=== PATIENT | female | born 1950 | race Caucasian/White ===

== ENCOUNTER → 2016-12-18 | Outpatient (CLI) | payer OTHER ==
[~2016-12-18] VITALS: Ht 165.1 cm; Wt 51.8 kg
[~2016-12-18] MED LIST: AMIO200T2 PO; AMLO2.5T PO; ASPI-557 PO; BUPR300T59 PO; CALC-603 PO; DULO60CA25 PO; FAMO-137 PO; MAGN500C4 PO; METO25TA6 PO; ONDA4TAB4 PO; QUET50TA53 PO; ROSU20TA PO; SULF1TAB42 PO; ZOLP5TAB8 PO
== END ==
LOC: RC 08:59
PROVIDERS: ATTEND Internal Medicine Cardiovascular Disease
DX: I48.92 Unspecified atrial flutter (principal)
CPT/HCPCS: 94010; 94726

== ENCOUNTER → 2017-01-08 | Outpatient (CLI) | payer OTHER ==
[~2017-01-08] MED LIST changes: -CALC-603 PO; -MAGN500C4 PO
--- NOTE | 2017-01-08 12:11 | DI ---
INDICATION: ITS.REASON: R06.02 SOB PROCEDURE: CHEST 2-VIEWS UPRIGHT (PA \T\ LAT) Encounter: Initial COMPARISON: One view chest, 11/12/2016 FINDINGS: The lungs are clear without evidence of focal abnormal airspace opacity. There is moderate hyperaeration consistent with chronic obstructive pulmonary disease. There are small bilateral pleural effusions. Once again noted is median sternotomy. The heart size, mediastinal contours and pulmonary vascularity are within normal limits. There is no significant skeletal abnormality. IMPRESSION: 1. Chronic pulmonary disease. 2. Emergence of bilateral pleural effusions since the reference study. .
[2017-01-08 12:20] LABS: ALBUMIN 3.9 G/DL (3.5-5.0); ALBUMIN/GLOBULIN RATIO 1.1 RATIO (1.1-2.2); ALKALINE PHOSPHATASE 135 U/L (38-126); ALT (SGPT) 32 U/L (9-52); AST (SGOT) 38 U/L (14-36); TOTAL PROTEIN 7.5 G/DL (6.3-8.2)
[2017-01-08 12:59] LABS: THYROID STIM HORMONE-TSH 3.67 MIU/L (0.47-4.68)
== END ==
LOC: IMA 10:03
PROVIDERS: ATTEND Internal Medicine Cardiovascular Disease
DX: J44.9 Chronic obstructive pulmonary disease, unspecified (principal); J90 Pleural effusion, not elsewhere classified; Z98.890 Other specified postprocedural states; R06.02 Shortness of breath; I10 Essential (primary) hypertension
CPT/HCPCS: 36415; 80076; 84443

== ENCOUNTER 2018-04-08 15:18 | Observation (INO) ==
[2018-04-08] MEDS ORDERED: SALINE FLUSH 10ml SYRINGE IV PRN (16:07)
[2018-04-08] MEDS ORDERED: PHARMACY CONSULT - OTHER MEDS MC ONE (16:13)
[2018-04-08] MEDS ORDERED: PHYTONADIONE 1 MG/0.5 ML ORAL LIQUID PO ONE (16:18)
[2018-04-08] MEDS ORDERED: PHYTONADIONE 5 MG/2.5 ML ORAL LIQUID PO ONE ×2 (16:30→22:59)
[2018-04-08 16:37] VITALS: BMI 18.8
[2018-04-08] MEDS ORDERED: DiphenhydrAMINE 25 MG CAPSULE PO PRN (23:02)
[2018-04-09] MEDS ORDERED: PHYTONADIONE 5 MG/2.5 ML ORAL LIQUID PO ONE ×2 (03:10→07:24)
[2018-04-09] MEDS ORDERED: LEVOTHYROXINE 75 MCG TABLET PO SCH (06:30)
--- NOTE | 2018-04-09 07:53 | Cardiology History & Physical ---
History of Present Illness Chief complaint: elevated INR HPI: Makayla is a 67 year old female who is known to Dr. Paez's practice with a history of CAD with CABG in 2010, Aortic dissection with bypass in 2016, Atrial flutter, HTN, HLD and claudication of both LEs for which she is scheduled for a Aortogram and LE angio in the future. She was seen in the clinic on 02/14/18 and started on Pradaxa for her arrhythmia, on 02/21/18 she was changed to Xarelto due to insurance coverage and cost. On 03/29/18 she phoned the office and reported a rash of her UEs and asked to be changed to warfarin. She was prescribed 5mg daily and lab in 1 week at that time. She was seen in clinic last by Dr. Vo and at that time he stopped the warfarin and ordered lab for yesterday. Her INR resulted at >10 (was actually 21) and she was admitted for observation and treatment of elevated INR with Vitamin K. She is examined in her room on the Medical unit, she is alert and oriented. She denies any recent illness, fever, chills, cough, sore throat, epistaxis, chest pain, dyspnea, N/V/D, bloody stools, hematuria, rash, or bruising. Review of Systems - Constitutional Constitutional: Absent: chills, fatigue, fever(s) - EENMT Eyes: Absent: change in vision Balance: Absent: vertigo Mouth/Throat: Absent: sore throat - Cardiovascular Cardiovascular: Absent: chest pain, palpitations, syncope, dyspnea on exertion, orthopnea, edema Rhythm: Absent: abnormal rhythm - Respiratory Respiratory: Absent: cough, dyspnea, dyspnea on exertion - Gastrointestinal Gastrointestinal: Absent: abdominal pain, constipation, diarrhea, nausea, vomiting - Genitourinary Genitourinary: Absent: dysuria - Integumentary/Breasts Integumentary: Absent: rash - Neurological Neurological: Absent: dizziness - Endocrine Endocrine: Absent: palpitations PFSH Patient Stated Medical History Hearing Loss Yes Cardiac Arrhythmia Yes: A-flutter Congestive Heart Failure Yes Coronary Artery Disease Yes Hypertension Yes Myocardial Infarction Yes Valvular Heart Disease Yes Hx Urinary Tract Infection Yes: past Surgical History: Aortic dissection repair 2016. single bypass 2016. Quadruple bypass 2010 Family History: Father - [place], cause of , age 55 Mother - Open heart surgery, cause of , age 55 Sister - bypass surgery, still living Brother - bypass surgery, still living - Social History Smoking status: Former smoker Substance use type: does not use Alcohol intake frequency: holidays/special occasions only Household members: none Current occupational status: retired Current residence: Apartment/Private Home Medications Home Medications Medication Instructions Recorded Confirmed Type Duloxetine HCl [Cymbalta] 60 mg PO DAILY #0 08/26/09 04/08/18 History Amlodipine [Norvasc] 2.5 mg PO DAILY 04/08/18 04/08/18 History Levothyroxine Sodium 75 mcg PO DAILY 04/08/18 04/08/18 History Metoprolol Tartrate [Lopressor] 12.5 mg PO BIDWM 04/08/18 04/08/18 History Rosuvastatin [Crestor] 20 mg PO DAILY 04/08/18 04/08/18 History buPROPion HCl [Wellbutrin Xl] 300 mg PO DAILY 04/08/18 04/08/18 History HydrOXYzine [Atarax] 25 mg PO Q6H PRN #30 tab 04/09/18 Rx Allergies Allergy/AdvReac Type Severity Reaction Status Date / Time No Known Drug Allergies Allergy Unknown Verified 04/08/18 16:41 Exam Vital signs: Temperature 95.7 F L 04/08/18 23:31 Pulse Rate 55 L 04/09/18 00:00 Respiratory Rate 16 04/08/18 23:31 Blood Pressure 133/86 04/08/18 23:31 Pulse Oximetry 98 04/08/18 23:31 - Constitutional no acute distress, well nourished, cooperative - Routine HEENT Exam Head: Present: normocephalic ENT: Present: mucous membranes moist - Routine Neck Exam Absent: JVD, carotid bruit - Routine Chest/Breast/Axilla Exam Chest wall: Absent: tenderness - Routine Respiratory Exam Present: CTA bilaterally. Absent: rales, wheezes - Routine Cardiovascular Exam Present: no murmur, tachycardia, irregularly irregular - Routine Abdominal Exam Present: soft, non tender - Routine Extremities Exam Present: no edema - Routine Skin Exam Present: intact, dry, warm - Routine Neurological Exam Present: alert, oriented X3 - Routine Psychiatric Exam Present: normal affect, normal thought process Results 04/09/18 05:54 04/09/18 14:09 CBC 04/08/18 Range/Units 17:25 WBC 4.3 L (4.5-11.0) T/MM3 RBC 4.15 (4.00-5.20) M/MM3 Hgb 12.3 (12-16) GM/DL Hct 38.5 (36-46) % Plt Count 230 (130-400) T/MM3 Neut # (Auto) 2.1 (1.8-7.7) T/MM3 Lymph # (Auto) 1.5 (1-4.8) T/MM3 White # (Auto) 0.5 (0-0.8) T/MM3 Eos # (Auto) 0.3 (0-0.5) T/MM3 Baso # (Auto) 0.0 (0-0.2) T/MM3 Intake and Output 04/08/18 04/09/18 04/09/18 22:59 06:59 14:59 Intake Total 840 / 840 326 / 326 Balance 840 / 840 326 / 326 Intake: Oral 840 / 840 326 / 326 Other: # Voids 1 1 Weight 117 lb 1.047 oz EKG interpretations - EKG EKG shows: tachycardia - Dysrhythmias Supraventricular dysrhythmia: atrial flutter Hospital Course This is a general summary of the patient's hospital course. For more details refer to the complete medical record. Time spent with patient: 25 - 35 minutes Resuscitation Status: Full Code Assessment and Plan - Attestation Attestation Narrative: 04/11/18 18:05 Recommendation After examining the patient I agree with the above assessment. I am involved in the formulation of the patient's plan of care. - Assessment and Plan (1) Elevated INR Status: Acute Coumadin stopped on 04/04/18 - INR trend 1)21, 2)19, 3)13, 4) 8.90, 5) 6.55 - Given oral Vitamin K 2.5mg X5 per pharmacy recommendation - INR q 4h - Bedrest, up with assist to chair only - Monitor closely for signs of bleeding - HGB remains stable (2) Atrial flutter Status: Chronic Rash on Xarelto, cannot afford Pradaxa - Warfarin started but discontinued by Dr. Vo. - CVA risk is about 1-2% in this patient (3) Atherosclerosis of coronary artery bypass graft without angina pectoris Status: Chronic recent stress test nonischemic - Continue Aspirin and Statin therapy (4) Dissection of aorta Status: Chronic S/P repair, recent echo stable (5) Essential (primary) hypertension Status: Chronic Well controlled on current therapy, continue current therapy with routine monitoring (6) Mixed hyperlipidemia Status: Chronic Takes Crestor, PCP manages
[2018-04-09] MEDS ORDERED: BuPROPion XL 300mg (24HR) TABLET PO SCH (09:00)
[2018-04-09] MEDS ORDERED: ROSUVASTATIN 20 MG TABLET PO SCH (09:00)
[2018-04-09] MEDS ORDERED: DULOXETINE 60 MG CAPSULE PO SCH (09:00)
[2018-04-09] MEDS ORDERED: AMLODIPINE 2.5 MG TABLET PO SCH (09:00)
[2018-04-09] MEDS ORDERED: PHYTONADIONE 1 MG/0.5 ML ORAL LIQUID PO ONE (12:09)
[2018-04-09] MEDS ORDERED: PNEUMOCOCCAL 13 VACCINE 0.5ml INJECTION IM ONE (12:37)
[2018-04-09 15:19] VITALS: BP 133/87; RESP 14; TEMP 97.8; O2SAT 99
[2018-04-09 16:17] VITALS: PULSE 72
--- NOTE | 2018-04-09 16:53 | Discharge Summary ---
<Luz Michael - Last Filed: 04/10/18 10:52> Discharge Information Date of admission: 04/08/18 16:02 Anticipated date of discharge: 04/09/18 Attending Physician: Adolfo Paez MD Primary care physician: Krissy Woodson MD - Discharge Diagnosis (1) Elevated INR Status: Acute (2) Atrial flutter Status: Chronic (3) Atherosclerosis of coronary artery bypass graft without angina pectoris Status: Chronic (4) Dissection of aorta Status: Chronic (5) Essential (primary) hypertension Status: Chronic (6) Mixed hyperlipidemia Status: Chronic elevated INR, A fib, CAD, HTN, HLD - Laboratory Labs: 04/09/18 05:54 04/09/18 14:09 History of Present Illness HPI: Makayla is a 67 year old female who is known to Dr. Paez's practice with a history of CAD with CABG in 2010, Aortic dissection with bypass in 2016, Atrial flutter, HTN, HLD and claudication of both LEs for which she is scheduled for a Aortogram and LE angio in the future. She was seen in the clinic on 02/14/18 and started on Pradaxa for her arrhythmia, on 02/21/18 she was changed to Xarelto due to insurance coverage and cost. On 03/29/18 she phoned the office and reported a rash of her UEs and asked to be changed to warfarin. She was prescribed 5mg daily and lab in 1 week at that time. She was seen in clinic last by Dr. Vo and at that time he stopped the warfarin and ordered lab for yesterday. Her INR resulted at >10 (was actually 21) and she was admitted for observation and treatment of elevated INR with Vitamin K. She is examined in her room on the Medical unit, she is alert and oriented. She denies any recent illness, fever, chills, cough, sore throat, epistaxis, chest pain, dyspnea, N/V/D, bloody stools, hematuria, rash, or bruising. Hospital Course This is a general summary of the patient's hospital course. For more details refer to the complete medical record. Hospital course: Elevated INR Current visit: Yes Status: Acute Coumadin stopped on 04/04/18 - INR trend 1)21, 2)19, 3)13, 4) 8.90, 5) 6.55 - Given oral Vitamin K 2.5mg X5 per pharmacy recommendation - INR q 4h - Bedrest, up with assist to chair only - Monitor closely for signs of bleeding - HGB remains stable Atrial flutter Current visit: Yes Status: Chronic Rash on Xarelto, cannot afford Pradaxa - Warfarin started but discontinued by Dr. Vo. - CVA risk is about 1-2% in this patient Atherosclerosis of coronary artery bypass graft without angina pectoris Current visit: Yes Status: Chronic recent stress test nonischemic - Continue Aspirin and Statin therapy Dissection of aorta Current visit: Yes Status: Chronic S/P repair, recent echo stable Essential (primary) hypertension Current visit: Yes Status: Chronic Well controlled on current therapy, continue current therapy with routine monitoring Mixed hyperlipidemia Current visit: Yes Status: Chronic Takes Crestor, PCP manages Spoke with Dr. Dillon regarding anticoagulation prior to ablation on Sunday. He plans to do KAUSHIK prior to ablation and wants the patient to be off all anticoagulation until then. Time spent with patient: 25 - 35 minutes Resuscitation Status: Full Code Exam Vital signs: Temperature 97.8 F 04/09/18 15:18 Pulse Rate 72 04/09/18 16:00 Respiratory Rate 14 04/09/18 15:18 Blood Pressure 133/87 04/09/18 15:18 Pulse Oximetry 99 04/09/18 15:18 - Constitutional no acute distress, well nourished, cooperative - Routine HEENT Exam Head: Present: normocephalic ENT: Present: mucous membranes moist - Routine Neck Exam Absent: JVD, carotid bruit - Routine Chest/Breast/Axilla Exam Chest wall: Absent: tenderness - Routine Respiratory Exam Present: CTA bilaterally. Absent: rales, wheezes - Routine Cardiovascular Exam Present: no murmur, tachycardia, irregularly irregular - Routine Abdominal Exam Present: soft, non tender - Routine Extremities Exam Present: no edema - Routine Skin Exam Present: intact, dry, warm - Routine Neurological Exam Present: alert, oriented X3 - Routine Psychiatric Exam Present: normal affect, normal thought process Results 04/09/18 05:54 04/09/18 14:09 Cardiac Enzymes 04/09/18 Range/Units 14:09 AST 48 H (14-36) U/L CBC 04/08/18 04/09/18 Range/Units 17:25 05:54 WBC 4.3 L 4.1 L (4.5-11.0) T/MM3 RBC 4.15 4.50 (4.00-5.20) M/MM3 Hgb 12.3 13.4 (12-16) GM/DL Hct 38.5 41.1 (36-46) % Plt Count 230 232 (130-400) T/MM3 Neut # (Auto) 2.1 (1.8-7.7) T/MM3 Lymph # (Auto) 1.5 (1-4.8) T/MM3 Yell # (Auto) 0.5 (0-0.8) T/MM3 Eos # (Auto) 0.3 (0-0.5) T/MM3 Baso # (Auto) 0.0 (0-0.2) T/MM3 Comprehensive Metabolic Panel 04/09/18 Range/Units 14:09 Sodium 145 (136-146) MEQ/L Potassium 4.7 (3.6-5) MEQ/L Chloride 106 (98-107) MEQ/L Carbon Dioxide 31 H (22-30) MEQ/L BUN 15.0 (7-17) MG/DL Creatinine 0.7 (0.7-1.2) mg/dL Glucose 87 (65-110) MG/DL Calcium 9.3 (8.4-10.2) MG/DL AST 48 H (14-36) U/L ALT 26 (1-35) U/L Alkaline Phosphatase 117 (38-126) U/L Total Protein 7.0 (6.3-8.2) g/dL Albumin 4.1 (3.5-5.0) g/dL Intake and Output 04/09/18 04/09/18 04/09/18 06:59 14:59 22:59 Intake Total 326 / 326 Output Total 775 / 775 Balance 326 / 326 -775 / -775 Intake: Oral 326 / 326 Output: Urine 775 / 775 Other: Urine Appearance Clear Urine Color Yellow # Voids 1 1 Weight 115 lb 8.356 oz Patient Weight 04/10/18 06:59 Weight 115 lb 8.356 oz Discharge Plan - Med Rec/Dispo Referrals/Follow Up: Adolfo Paez MD [Physician] - 2 Weeks Raya Instructions: Elevated INR (DC) Prescriptions: New HydrOXYzine [Atarax] 25 mg PO Q6H PRN #30 tab PRN Reason: Itching Continue Duloxetine HCl [Cymbalta] 60 mg PO DAILY #0 Levothyroxine Sodium 75 mcg PO DAILY Metoprolol Tartrate [Lopressor] 12.5 mg PO BIDWM Amlodipine [Norvasc] 2.5 mg PO DAILY buPROPion HCl [Wellbutrin Xl] 300 mg PO DAILY Rosuvastatin [Crestor] 20 mg PO DAILY Discontinued Isosorbide Mononitrate ER [Imdur] 30 mg PO DAILY Warfarin [Coumadin] 5 mg PO DAILY - Disposition 01 Discharged Home, Self-Care - Dismissal Complete Discharge Instructions are:: Complete <Adolfo Paez - Last Filed: 04/11/18 18:12> Discharge Information Date of admission: 04/08/18 16:02 Attending Physician: Adolfo Paez MD Primary care physician: Krissy Woodson MD - Discharge Diagnosis (1) Elevated INR Status: Acute (2) Atrial flutter Status: Chronic (3) Atherosclerosis of coronary artery bypass graft without angina pectoris Status: Chronic (4) Dissection of aorta Status: Chronic (5) Essential (primary) hypertension Status: Chronic (6) Mixed hyperlipidemia Status: Chronic - Laboratory Labs: 04/09/18 05:54 04/09/18 14:09 Hospital Course This is a general summary of the patient's hospital course. For more details refer to the complete medical record. Exam Vital signs: Temperature 97.8 F 04/09/18 15:18 Pulse Rate 72 04/09/18 16:00 Respiratory Rate 14 04/09/18 15:18 Blood Pressure 133/87 04/09/18 15:18 Pulse Oximetry 99 04/09/18 15:18 Results 04/09/18 05:54 04/09/18 14:09 Attestation Narriative - Attestation Attestation Narrative: 04/11/18 18:12 Recommendation After examining the patient I agree with the above assessment. I am involved in the formulation of the patient's plan of care.
== END 2018-04-09 18:09 | disposition home or self-care (01) ==
LOC: MED
PROVIDERS: ADMIT Internal Medicine Cardiovascular Disease; ATTEND Internal Medicine Cardiovascular Disease